=== PATIENT | male | born 1960 | race Two or more races ===

== ENCOUNTER 2016-10-21 20:50 | Emergency (ER) | payer BC ==
[2016-10-21 21:01] VITALS: BP 134/75
[2016-10-21] MEDS ORDERED: Acetaminophen/oxyCODONE 325-5 MG Tab PO ONE (21:27)
[2016-10-21] MEDS ORDERED: predniSONE 20 MG Tab PO ONE (21:27)
[2016-10-21] MEDS ORDERED: Indomethacin 25 MG Cap PO ONE (21:27)
--- NOTE | 2016-10-21 21:29 | EDM.PDOC ---
ED HPI Trauma - General Chief Complaint: Lower Extremity Injury/Pain Stated Complaint: LEFT KNEE PAIN Time Seen by Provider: 10/21/16 21:20 Source: Reports: Patient History Limitations: Reports: No limitations - History of Present Illness INITIAL COMMENTS - FREE TEXT/NARRATIVE: 56-year-old male presents the ED with acute onset of severe pain in his left knee. Patient reports that he said previous trauma to the knee and kelvin COFFEY and medial meniscal injury identified on MRI. Was offered surgery in [facility], [place] but declined at that time. Since that time he can get along pretty well. He works but he wears a brace a good portion of the time depending on what he is doing. He suffered no recent trauma or injuries. He states he was up in my [place] most of the weekend at his son's wrestling tournament standing a good portion of the time. By Friday evening on the way home when he noticed that the knee was starting to ache and hurt a bit. Yesterday the knee became more painful and swollen and hot to touch. He did try to work today but found it very difficult. He states the pain is bad enough to make him cry. Pain is localized to the knee superior to the joint space. Symptom Onset Date: 10/19/16 (late in the evening on the way home from my not.) Occurred When: other (developed about 2 days ago.) Method of Injury: other Severity: severe (no known injury) Pain/Injury Location: Reports: lower extremity, left (left knee.) Associated Symptoms: Reports: no other symptoms Allergies/ADRs: Allergies No Known Allergies Allergy (Verified 08/29/16 03:00) Home Medications: Ambulatory Orders Insulin Detemir [Levemir] 75 unit SQ DAILY 01/25/14 [Confirmed 08/29/16] Lisinopril [Zestril] 20 mg PO DAILY 01/25/14 [Confirmed 08/29/16] Simvastatin [Zocor] 40 mg PO DAILY 01/25/14 [Confirmed 08/29/16] Aspirin [Halfprin] 81 mg PO ASDIRECTED 08/17/14 [Confirmed 08/29/16] Levothyroxine [Synthroid] 25 mcg PO DAILY 11/20/14 [Confirmed 08/29/16] Furosemide [Lasix] 40 mg PO DAILY 01/11/16 [Confirmed 08/29/16] Novolog Regular Insulin. 05/21/16 oxyCODONE 10 mg PO Q6H PRN 05/21/16 [Confirmed 08/29/16] traMADol [Ultram] 50 - 100 mg PO Q6H PRN #15 tablet 08/29/16 Diclofenac Sodium [Voltaren] 50 mg PO TIDMEALS #30 tab.ec 10/21/16 Prednisone [IJD: predniSONE] 20 mg PO BID #14 tab 10/21/16 oxyCODONE HCl/Acetaminophen [Percocet 5-325 mg Tablet] 1 - 2 each PO Q4H PRN # 20 tablet 10/21/16 Past Medical History Cardiovascular History: Reports: High cholesterol, Hypertension Gastrointestinal History: Reports: GERD Other Genitourinary History: vasectomy Musculoskeletal History: Reports: Back pain, chronic, Fracture Psychiatric History: Reports: Addiction Endocrine/Metabolic History: Reports: Diabetes, type II (uses insulin for diabetic control.), Hypothyroidism - Infectious Disease History Infectious Disease History: Reports: Chicken pox - Past Surgical History GI Surgical History: Reports: Cholecystectomy Male Surgical History: Reports: Vasectomy Social & Family History - Family History Family Medical History: Noncontributory - Tobacco Use Smoking Status *Q: Current Every Day Smoker Years of Tobacco use: 1 Packs/Tins Daily: 0.2 Used Tobacco, but Quit: Yes Month Tobacco Last Used: 20 years Second Hand Smoke Exposure: No - Caffeine Use Caffeine Use: Reports: None - Alcohol Use Days Per Week of Alcohol Use: 7 Number of Drinks Per Day: 2 Total Drinks Per Week: 14 - Recreational Drug Use Recreational Drug Use: No Recreational Drug Type: Reports: Other (see below) - Living Situation & Occupation Occupation: employed Review of Systems - Review of Systems Review Of Systems: See Below Constitutional: Reports: chills. Denies: fever, weakness, other Eyes: Reports: no symptoms (perhaps had a few chills earlier today.) Ears: Reports: no symptoms Nose: Reports: no symptoms Mouth/Throat: Reports: no symptoms Respiratory: Reports: no symptoms Cardiovascular: Reports: no symptoms GI/Abdominal: Reports: No symptoms Genitourinary: Reports: other (frequency) Musculoskeletal: Reports: joint pain Skin: Reports: no symptoms (low back and left knee at times.) Neurological: Reports: no symptoms, gait disturbance Psychiatric: Denies: no symptoms (walking with a ba) Trauma Exam - Physical Exam Exam: See Below Exam Limited By: No limitations General Appearance: Reports: alert, WD/WN, mild distress (he appears to be in significant discomfort.) Extremities: Reports: other (examination was primarily confined to the left lower extremity. He has mild swelling in the soft tissues over the left knee. There is no cellulitis evident per se. There is mild tenderness on palpation of the prepatellar bursa in the infrapatellar bursa. There was no true joint space effusion or pain along the joint space. Pain is along the suprapatellar recess bursa suggesting underlying inf inflammation. He has full range of motion. I do not feel he has any evidence of a septic joint. There is no true knee effusion.) Neurologic: Reports: no motor/sensory deficits, alert, normal mood/affect, oriented x 3 Skin: Reports: Normal color, Warm/dry, Other - [place] Coma Score Best Eye Response ([place]): (4) open spontaneously Best Verbal Response ([place]): (5) oriented Best Motor Response ([place]): (6) obeys commands [place] Total: 15 Course - Vital Signs Last Recorded V/S: Last Vital Signs Temp 36.7 C 10/21/16 20:58 Pulse 86 10/21/16 20:58 Resp 16 10/21/16 20:58 BP 134/75 10/21/16 20:58 Pulse Ox 95 10/21/16 20:58 - Orders/Labs/Meds Orders: Active Orders 24 hr Category Date Time Status Knee 3V Lt [CR] Stat Exams 10/21/16 21:28 Taken Meds: Medications Discontinued Medications Generic Name Dose Route Start Last Admin Trade Name Jarrellq PRN Reason Stop Dose Admin Indomethacin 50 mg 10/21/16 21:27 10/21/16 21:45 Indocin PO 10/21/16 21:28 50 mg ONETIME ONE Administration Oxycodone/Acetaminophen 2 tab 10/21/16 21:27 10/21/16 21:44 Percocet 325-5 Mg PO 10/21/16 21:28 2 tab ONETIME ONE Administration Prednisone 30 mg 10/21/16 21:27 10/21/16 21:45 Prednisone PO 10/21/16 21:28 30 mg ONETIME ONE Administration - Radiology Interpretation Free Text/Narrative:: 56-year-old male of [place] descent presents the ED with an acutely painful left knee. No recent acute injury. Previous injury in 2013 with torn anterior cruciate ligament and medial meniscal tear which he declined surgical repair 4. Gets along well with the brace and then just work quite well. He does spend time working on his knees. Knee started hurting spontaneously when he was at a wrestling tournament this weekend standing a lot in my not. Yesterday the knee started to swell and become even more painful and increased warmth appreciated. Today the pain is bad enough that he can barely walk he states is been no to almost make him cry. Examination shows inflammation over the knee primarily the patella and suprapatellar recess lateral to the patella. There is no true knee effusion. There is no jointline tenderness. Clinically I think he' s developed pseudogout in the knee. Plan x-rays of the knee would be carried out to look for loose bodies. I will start him on prednisone 30 mg by mouth with Percocet 5 325x2 by mouth for pain relief and indomethacin 50 mg by mouth. - Re-Assessments/Exams Free Text/Narrative Re-Assessment/Exam: 10/21/16 22:25: x-rays of the left knee are completely normal. He does have a fabella. No foreign bodies were identified within the true knee joint.plan he will be treated for suspect Crystal related disorder arthritis. Suspect pseudogout. He'll use Percocet 5 325 one or 2 tablets every 4-6 hours as needed for pain relief when not working or operating a motor vehicle. He will use Voltaren 50 mg 3 times daily for the next 10 days to clear up inflammation. Prednisone 20 mg twice daily breakfast and supper for 5 for 5 days to reduce pain and inflammation in the knee. He is just expect marked improvement in the next 2-3 days. If condition worsens in that timeframe or he develops fever or chills he will return to the ED. Departure - Departure Time of Disposition: 22:20 Disposition: Home, Self-Care 01 Condition: fair Clinical Impression: Pseudogout of left knee Prescriptions: Diclofenac Sodium [Voltaren] 50 mg PO TIDMEALS #30 tab.ec Prednisone [IJD: predniSONE] 20 mg PO BID #14 tab oxyCODONE HCl/Acetaminophen [Percocet 5-325 mg Tablet] 1 - 2 each PO Q4H PRN # 20 tablet PRN Reason: pain relief. Instructions: Calcium Pyrophosphate Deposition Referrals: Rona Andrade MD [Primary Care Provider] - Forms: ED Department Discharge Additional Instructions: evaluation in the emergency him today in regards to acute onset of severe pain in the left anterior knee. This has developed acutely over the last 48 hours. No known trauma to the knee. Examination shows evidence of inflammation involving the lining of the joints above the knee.x-rays of the knee proved to be completely normal. Suspect diagnosis to be inflammation secondary to the deposition of pseudogout crystals. Treatment is to use prednisone 20 mg twice daily for the next 7 days with breakfast and supper. First dose of prednisone was given in the ED tonight. Need to use anti-inflammatory Voltaren 50 mg 3 times daily for the next 10 days to relieve pain and inflammation. Pain medication Percocet 5 325 one or 2 every 4-6 hours needed for pain relief. Expect marked improvement over the next 48-72 hours. If not markedly improved to need to return to medical care. - My Orders Last 24 Hours: My Active Orders 10/21/16 21:28 Knee 3V Lt [CR] Stat - Assessment/Plan Last 24 Hours: My Active Orders 10/21/16 21:28 Knee 3V Lt [CR] Stat
--- NOTE | 2016-10-22 07:05 | CR ---
Left knee: AP, lateral and sunrise patellar views of the left knee were obtained. Comparison: No previous knee study. Medial and lateral joint spaces are maintained in height. No joint effusion is seen. Minimal spur noted off the lateral patella. No fracture or other bony abnormality is identified. Impression: 1. Minimal spur off the lateral patella. 2. Left knee exam is otherwise unremarkable. Diagnostic code #2
== END 2016-10-21 22:45 | disposition home or self-care (01) ==
LOC: JD.ED 20:50
DX: M11.262 Other chondrocalcinosis, left knee (principal); E78.00 Pure hypercholesterolemia, unspecified; I10 Essential (primary) hypertension; K21.9 Gastro-esophageal reflux disease without esophagitis; E11.9 Type 2 diabetes mellitus without complications; F17.210 Nicotine dependence, cigarettes, uncomplicated; Z79.82 Long term (current) use of aspirin; Z79.899 Other long term (current) drug therapy; Z79.4 Long term (current) use of insulin; Z90.49 Acquired absence of other specified parts of digestive tract
CPT/HCPCS: 73562; 99284; A9270; 99283

== ENCOUNTER 2016-12-04 20:18 | Emergency (ER) | payer BC ==
[2016-12-04] MEDS ORDERED: Sodium Chloride 0.9% 10 ML Syringe FLUSH PRN (20:46)
[2016-12-04] MEDS ORDERED: Ondansetron 4 MG/2 ML SDV IVPUSH ONE (20:46)
[2016-12-04] MEDS ORDERED: Sodium Chloride 0.9% 1,000 ML IV STA (20:46)
[2016-12-04] MEDS ORDERED: Alum Hydrox/Mag Hydrox/Simeth 30 ML, Lidocaine 2% 15 ML PO ONE ×2 (20:48)
[2016-12-04] MEDS ORDERED: Pantoprazole 40 MG Vial IVPUSH ONE (20:48)
--- NOTE | 2016-12-04 20:58 | EDM.PDOC ---
ED HPI GI/ABDOMINAL - General Chief Complaint: Abdominal Pain Stated Complaint: ABDOMAINAL PAIN Time Seen by Provider: 12/04/16 20:35 Source of Information: Reports: Patient History Limitations: Reports: No limitations - History of Present Illness INITIAL COMMENTS - FREE TEXT/NARRATIVE: The patient presents with right upper abdominal pain that started about 1 week ago. It is a burning pain and it radiates to his back at times. He has been traveling for over a week to [place] and [place] and then back. He has no dysuria or diarrhea. He still can eat and that does not affect it much. He has no gallbladder. He tried pepto bismal, maalox, and milk of magnesia but nothing is helping. He has some nausea tonight but no vomiting. Timing/Duration: Reports: Week(s): (1) Location: [facility] Quality: Reports: burning Severity: moderate Context: Reports: activity/exercise. Denies: sick contact, bad/questionable food, out of country travel, recent surgery, recent trauma, lifting Associated Symptoms: Reports: nausea/vomiting. Denies: chest pain, constipation , diarrhea, fever/chills, loss of appetite - Related Data Allergies/ADRs: Allergies Allergy/AdvReac Type Severity Reaction Status Date / Time No Known Allergies Allergy Verified 08/29/16 03:00 Home Meds: Home Meds Insulin Detemir [Levemir] 75 unit SQ DAILY 01/25/14 [History] Lisinopril [Zestril] 20 mg PO DAILY 01/25/14 [History] Simvastatin [Zocor] 40 mg PO DAILY 01/25/14 [History] Aspirin [Halfprin] 81 mg PO ASDIRECTED 08/17/14 [History] Levothyroxine [Synthroid] 25 mcg PO DAILY 11/20/14 [History] Furosemide [Lasix] 40 mg PO DAILY 01/11/16 [History] Novolog Regular Insulin. 0 unit INJECT ASDIRECTED 05/21/16 [History] Omeprazole Magnesium [Prilosec Otc] 20 mg PO DAILY #14 tablet. 12/04/16 [Rx] Past Medical History Cardiovascular History: Reports: High cholesterol, Hypertension Gastrointestinal History: Reports: GERD Other Genitourinary History: vasectomy Musculoskeletal History: Reports: Back pain, chronic, Fracture Psychiatric History: Reports: Addiction Endocrine/Metabolic History: Reports: Diabetes, type II, Hypothyroidism - Infectious Disease History Infectious Disease History: Reports: Chicken pox - Past Surgical History GI Surgical History: Reports: Cholecystectomy Male Surgical History: Reports: Vasectomy Social & Family History - Family History Family Medical History: Noncontributory - Tobacco Use Smoking Status *Q: Former Smoker Years of Tobacco use: 1 Packs/Tins Daily: 0.2 Used Tobacco, but Quit: Yes Month Tobacco Last Used: 30 Second Hand Smoke Exposure: No - Caffeine Use Caffeine Use: Reports: Coffee, Energy drinks, Soda - Alcohol Use Days Per Week of Alcohol Use: 7 Number of Drinks Per Day: 2 Total Drinks Per Week: 14 - Recreational Drug Use Recreational Drug Use: No Recreational Drug Type: Reports: Other (see below) - Living Situation & Occupation Occupation: employed ED ROS GENERAL - Review of Systems Review Of Systems: See Below Constitutional: Reports: no symptoms HEENT: Reports: No symptoms Respiratory: Reports: No Symptoms Cardiovascular: Reports: No symptoms Endocrine: Reports: no symptoms GI/Abdominal: Reports: Abdominal pain, Nausea. Denies: Diarrhea, Vomiting : Reports: no symptoms Musculoskeletal: Reports: no symptoms Skin: Reports: no symptoms ED EXAM, GI/ABD - Physical Exam Exam: See Below Exam Limited By: No limitations General Appearance: alert, no apparent distress Ears: normal external exam Nose: normal inspection Throat/Mouth: Normal inspection Head: atraumatic, normocephalic Neck: normal inspection Respiratory/Chest: no respiratory distress, lungs clear, normal breath sounds Cardiovascular: regular rate, rhythm, no edema, no murmur GI/Abdominal: soft, no organomegaly, no mass, tenderness (Mild to moderate pain to the RUQ) Back Exam: normal inspection Course - Vital Signs Last Recorded V/S: Last Vital Signs Temp 98.0 F 12/04/16 20:31 Pulse 79 12/04/16 20:31 Resp 20 12/04/16 20:31 BP 155/85 H 12/04/16 20:31 Pulse Ox 97 12/04/16 20:31 - Orders/Labs/Meds Orders: Active Orders 24 hr Category Date Time Status Peripheral IV Care [RC] . DIRECTED Care 12/04/16 20:47 Active Sodium Chloride 0.9% [Saline Flush] Med 12/04/16 20:46 Active 10 ml FLUSH ASDIRECTED PRN ED Antiemetic Medication Reflex [OM.PC] Stat Oth 12/04/16 20:47 Ordered Peripheral IV Insertion Adult [OM.PC] Stat Oth 12/04/16 20:46 Ordered Medication Orders Sodium Chloride (Saline Flush) 10 ml FLUSH ASDIRECTED PRN PRN Reason: Keep Vein Open Last Admin: 12/04/16 21:00 Dose: 10 ml Labs: Laboratory Tests 12/04/16 12/04/16 12/04/16 Range/Units 20:40 20:40 20:40 WBC 7.54 (4.23-9.07) K/mm3 RBC 4.55 L (4.63-6.08) M/mm3 Hgb 12.9 L (13.7-17.5) gm/L Hct 36.9 L (40.1-51.0) % MCV 81.1 (79.0-92.2) fl MCH 28.4 (25.7-32.2) pg MCHC 35.0 (32.2-35.5) g/dl RDW Std Deviation 42.8 (35.1-43.9) fL Plt Count 227 (163-337) K/mm3 MPV 9.7 (9.4-12.3) fl Neut % (Auto) 58.6 (34.0-67.9) % Lymph % (Auto) 30.2 (21.8-53.1) % [place] % (Auto) 9.3 (5.3-12.2) % Eos % (Auto) 1.5 (0.8-7.0) Baso % (Auto) 0.1 (0.1-1.2) % Neut # (Auto) 4.42 (1.78-5.38) K/mm3 Lymph # (Auto) 2.28 (1.32-3.57) K/mm3 [place] # (Auto) 0.70 (0.30-0.82) K/mm3 Eos # (Auto) 0.11 (0.04-0.54) K/mm3 Baso # (Auto) 0.01 (0.01-0.08) K/mm3 Sodium 136 (136-145) mEq/L Potassium 4.4 (3.5-5.1) mEq/L Chloride 101 (98-107) mEq/L Carbon Dioxide 26 (21-32) mEq/L Anion Gap 13.4 (5-15) BUN 21 H (7-18) mg/dL Creatinine 1.2 (0.7-1.3) mg/dL Est Cr Clr Drug Dosing 62.77 mL/min Estimated GFR (MDRD) > 60 (>60) mL/min BUN/Creatinine Ratio 17.5 (14-18) Glucose 359 H (74-106) mg/dL Calcium 9.0 (8.5-10.1) mg/dL Total Bilirubin 0.3 (0.2-1.0) mg/dL AST 19 (15-37) U/L ALT 31 (16-63) U/L Alkaline Phosphatase 122 H (46-116) U/L Total Protein 6.8 (6.4-8.2) g/dl Albumin 3.4 (3.4-5.0) g/dl Globulin 3.4 gm/dL Albumin/Globulin Ratio 1.0 (1-2) Lipase 353 (73-393) U/L Urine Color (Yellow) Urine Appearance (Clear) Urine pH (5.0-8.0) Ur Specific [place] (1.005-1.030) Urine Protein (Negative) Urine Glucose (UA) (Negative) Urine Ketones (Negative) Urine Occult Blood (Negative) Urine Nitrite (Negative) Urine Bilirubin (Negative) Urine Urobilinogen (0.2-1.0) Ur Leukocyte Esterase (Negative) Urine RBC (0-5) /hpf Urine WBC (0-5) /hpf Ur Epithelial Cells (0-5) /hpf Urine Bacteria (FEW) /hpf Urine Mucus (FEW) /hpf H. pylori IgG Antibody Negative (NEGATIVE) 12/04/16 Range/Units 21:05 WBC (4.23-9.07) K/mm3 RBC (4.63-6.08) M/mm3 Hgb (13.7-17.5) gm/L Hct (40.1-51.0) % MCV (79.0-92.2) fl MCH (25.7-32.2) pg MCHC (32.2-35.5) g/dl RDW Std Deviation (35.1-43.9) fL Plt Count (163-337) K/mm3 MPV (9.4-12.3) fl Neut % (Auto) (34.0-67.9) % Lymph % (Auto) (21.8-53.1) % [place] % (Auto) (5.3-12.2) % Eos % (Auto) (0.8-7.0) Baso % (Auto) (0.1-1.2) % Neut # (Auto) (1.78-5.38) K/mm3 Lymph # (Auto) (1.32-3.57) K/mm3 [place] # (Auto) (0.30-0.82) K/mm3 Eos # (Auto) (0.04-0.54) K/mm3 Baso # (Auto) (0.01-0.08) K/mm3 Sodium (136-145) mEq/L Potassium (3.5-5.1) mEq/L Chloride (98-107) mEq/L Carbon Dioxide (21-32) mEq/L Anion Gap (5-15) BUN (7-18) mg/dL Creatinine (0.7-1.3) mg/dL Est Cr Clr Drug Dosing mL/min Estimated GFR (MDRD) (>60) mL/min BUN/Creatinine Ratio (14-18) Glucose (74-106) mg/dL Calcium (8.5-10.1) mg/dL Total Bilirubin (0.2-1.0) mg/dL AST (15-37) U/L ALT (16-63) U/L Alkaline Phosphatase (46-116) U/L Total Protein (6.4-8.2) g/dl Albumin (3.4-5.0) g/dl Globulin gm/dL Albumin/Globulin Ratio (1-2) Lipase (73-393) U/L Urine Color Yellow (Yellow) Urine Appearance Clear (Clear) Urine pH 7.0 (5.0-8.0) Ur Specific [place] 1.015 (1.005-1.030) Urine Protein 2+ H (Negative) Urine Glucose (UA) 2+ H (Negative) Urine Ketones Negative (Negative) Urine Occult Blood Trace-lysed H (Negative) Urine Nitrite Negative (Negative) Urine Bilirubin Negative (Negative) Urine Urobilinogen 0.2 (0.2-1.0) Ur Leukocyte Esterase Negative (Negative) Urine RBC 0-5 (0-5) /hpf Urine WBC 0-5 (0-5) /hpf Ur Epithelial Cells 0-5 (0-5) /hpf Urine Bacteria Not seen (FEW) /hpf Urine Mucus Not seen (FEW) /hpf H. pylori IgG Antibody (NEGATIVE) Meds: Medications Generic Name Dose Route Start Last Admin Trade Name Baylee PRN Reason Stop Dose Admin Sodium Chloride 10 ml 12/04/16 20:46 12/04/16 21:00 Saline Flush FLUSH 10 ml ASDIRECTED PRN Administration Keep Vein Open Discontinued Medications Generic Name Dose Route Start Last Admin Trade Name Baylee PRN Reason Stop Dose Admin Al Hydroxide/Mg Hydroxide 30 0 ml 12/04/16 20:48 12/04/16 20:59 ml/ Lidocaine HCl 15 ml PO 12/04/16 20:49 45 ml ONETIME ONE Administration Sodium Chloride 1,000 mls @ 1,000 mls/hr 12/04/16 20:46 12/04/16 20:56 Normal Saline IV 12/04/16 21:45 1,000 mls/hr .BOLUS STA Administration Ondansetron HCl 4 mg 12/04/16 20:46 12/04/16 20:56 Zofran IVPUSH 12/04/16 20:47 4 mg ONETIME ONE Administration Pantoprazole Sodium 40 mg 12/04/16 20:48 12/04/16 20:59 Protonix Iv IVPUSH 12/04/16 20:49 40 mg ONETIME ONE Administration - Re-Assessments/Exams Free Text/Narrative Re-Assessment/Exam: 12/04/16 21:01 I ordered an IV NS 1L bolus, zofran 4mg IV, protonix 40mg IV, GI cocktail, labs and UA. 12/04/16 21:57 His CBC and CMP look good except his blood sugar is high at 359. His UA shows no UTI. His H-pylori is negative. I feel this is gastritis from traveling and not eating very good. I will give him a shot of dilaudid and give him a prescription for some prilosec for 2 weeks. Departure - Departure Time of Disposition: 22:00 Disposition: Home, Self-Care 01 Condition: good Clinical Impression: Hyperglycemia Gastritis Qualifiers: Gastritis type: unspecified gastritis Chronicity: acute Gastritis bleeding: without bleeding Qualified Code(s): K29.00 - Acute gastritis without bleeding Prescriptions: Omeprazole Magnesium [Prilosec Otc] 20 mg PO DAILY #14 tablet.dr Referrals: Rona Andrade MD [Primary Care Provider] - 1 Week Forms: ED Department Discharge Additional Instructions: Take prilosec daily for 2 weeks. Take your medications as prescribed. Please return if you are worse. - My Orders Last 24 Hours: My Active Orders 12/04/16 20:46 Sodium Chloride 0.9% [Saline Flush] 10 ml FLUSH ASDIRECTED PRN Peripheral IV Insertion Adult [OM.PC] Stat 12/04/16 20:47 Peripheral IV Care [RC] . DIRECTED ED Antiemetic Medication Reflex [OM.PC] Stat - Assessment/Plan Last 24 Hours: My Active Orders 12/04/16 20:46 Sodium Chloride 0.9% [Saline Flush] 10 ml FLUSH ASDIRECTED PRN Peripheral IV Insertion Adult [OM.PC] Stat 12/04/16 20:47 Peripheral IV Care [RC] . DIRECTED ED Antiemetic Medication Reflex [OM.PC] Stat
[2016-12-04] MEDS ORDERED: HYDROmorphone 1 MG/ML Syringe IVPUSH ONE (22:01)
[2016-12-04 22:33] VITALS: BP 137/86
== END 2016-12-04 22:33 | disposition home or self-care (01) ==
LOC: JD.ED 20:18
DX: K29.00 Acute gastritis without bleeding (principal); E11.65 Type 2 diabetes mellitus with hyperglycemia; E78.00 Pure hypercholesterolemia, unspecified; I10 Essential (primary) hypertension; K21.9 Gastro-esophageal reflux disease without esophagitis; E03.9 Hypothyroidism, unspecified; Z79.4 Long term (current) use of insulin; Z79.82 Long term (current) use of aspirin; Z79.899 Other long term (current) drug therapy; Z90.49 Acquired absence of other specified parts of digestive tract; Z87.891 Personal history of nicotine dependence
CPT/HCPCS: 36415; 80053; 81001; 83690; 85025; 86677; 96361; 96374; 96375; 99284; A9270; C9113; J1170; J2405; J7040; J7050

== ENCOUNTER 2017-02-12 16:20 | Emergency (ER) | payer BC ==
[2017-02-12 16:45] VITALS: BP 151/106
[2017-02-12] MEDS ORDERED: Sodium Chloride 0.9% 1,000 ML IV ONE (18:04)
[2017-02-12] MEDS ORDERED: Sodium Chloride 0.9% 10 ML Syringe FLUSH PRN (18:04)
--- NOTE | 2017-02-12 20:22 | EDM.PDOC ---
ED HPI GENERAL MEDICAL PROBLEM - General Chief Complaint: Diabetic Complaint Stated Complaint: PAIN IN EAR, VERY TIRED, DIABETIC Time Seen by Provider: 02/12/17 18:16 Source of Information: Reports: Patient, Family (son) History Limitations: Reports: No Limitations - History of Present Illness INITIAL COMMENTS - FREE TEXT/NARRATIVE: 56 year old male presents for evaluation and treatment of right ear pain. Patient reports right ear pain for the last 5 days. reports associated symptoms of a slight productive cough and a sore throat from coughing. Denies any fevers , chills, sinus problems, headaches, bodyaches, chest pain or shortness of breath. Patient is a diabetic and reports his sugars have been well controlled, normally around 120s. Reports he did have a high yesterday in the 250s which he took insulin for. The patient's son is present. He is very concerned as he feels the patient has been more lethargic than normal. Reports he goes to work comes home an sleeps all day. This is unusual for him. 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 He has been tested for sleep apnea in the past. Patient is an alcohoilc. He has been sober for several months but over the last few weeks he began drinking alcohol again. Reports he has 1 or 2 shooters at night and in the morning. Right Ear Pain Score (Numeric/FACES): 5 - Related Data Allergies Allergy/AdvReac Type Severity Reaction Status Date / Time No Known Allergies Allergy Verified 02/12/17 16:47 Home Meds: Home Meds Lisinopril [Zestril] 20 mg PO DAILY 01/25/14 [History] Simvastatin [Zocor] 40 mg PO DAILY 01/25/14 [History] Aspirin [Halfprin] 81 mg PO ASDIRECTED 08/17/14 [History] Levothyroxine [Synthroid] 75 mcg PO DAILY 11/20/14 [History] Novolog Regular Insulin. 0 unit INJECT ASDIRECTED 05/21/16 [History] Amoxicillin 875 mg PO TID #30 tab 02/12/17 [Rx] Tresiba Insulin 68 units SQ DAILY 02/12/17 [History] Past Medical History Cardiovascular History: Reports: High Cholesterol, Hypertension Gastrointestinal History: Reports: GERD Other Genitourinary History: vasectomy Musculoskeletal History: Reports: Back Pain, Chronic, Fracture Psychiatric History: Reports: Addiction Endocrine/Metabolic History: Reports: Diabetes, Type II, Hypothyroidism - Infectious Disease History Infectious Disease History: Reports: Chicken Pox - Past Surgical History GI Surgical History: Reports: Cholecystectomy Male Surgical History: Reports: Vasectomy Social & Family History - Family History Family Medical History: Noncontributory - Tobacco Use Smoking Status *Q: Current Every Day Smoker Years of Tobacco use: 0 Packs/Tins Daily: 1 Used Tobacco, but Quit: Yes Month Tobacco Last Used: 30 Second Hand Smoke Exposure: No - Caffeine Use Caffeine Use: Reports: None - Alcohol Use Days Per Week of Alcohol Use: 7 Number of Drinks Per Day: 6 Total Drinks Per Week: 42 - Recreational Drug Use Recreational Drug Use: No Recreational Drug Type: Reports: Other (see below) - Living Situation & Occupation Occupation: Employed ED ROS GENERAL - Review of Systems Review Of Systems: See Below Constitutional: Reports: Fatigue. Denies: Fever HEENT: Reports: Ear Pain (right), Throat Pain. Denies: Sinus Problem Respiratory: Reports: Cough, Sputum. Denies: Shortness of Breath Cardiovascular: Denies: Chest Pain Endocrine: Reports: High Glucose (high of 245 yesterday). Denies: Low Glucose GI/Abdominal: Denies: Abdominal Pain, Nausea, Vomiting : Reports: No Symptoms Neurological: Denies: Headache ED EXAM GENERAL NO PERIP PULSE - Physical Exam Exam: See Below Exam Limited By: Intoxication (smells of alcohol) General Appearance: Alert, WD/WN, No Apparent Distress, Obese, Other (sleeping but easily arousable) Eye Exam: Bilateral Eye: Conjunctival Injection Ears: Normal External Exam, Normal Canal, Other (right TM is erythematous ans bulding; left ) Nose: Normal Inspection Throat/Mouth: Normal Inspection, Normal Lips, Normal Gums, Normal Oropharynx, Normal Voice, No Airway Compromise Neck: Normal Inspection, Supple, Non-Tender Respiratory/Chest: No Respiratory Distress, Lungs Clear, Normal Breath Sounds Cardiovascular: Normal Peripheral Pulses, Regular Rate, Rhythm, No Murmur GI/Abdominal: Normal Bowel Sounds, Soft, Non-Tender Neurological: Alert, Oriented, Normal Cognition Psychiatric: Normal Affect, Normal Mood Skin Exam: Warm, Dry, Normal Color Course - Vital Signs Last Recorded V/S: Last Vital Signs Temp 36.3 C 02/12/17 16:36 Pulse 81 02/12/17 16:36 Resp 18 02/12/17 16:36 BP 151/106 H 02/12/17 16:36 Pulse Ox 95 02/12/17 16:36 - Orders/Labs/Meds Labs: Laboratory Tests 02/12/17 02/12/17 02/12/17 Range/Units 18:20 18:20 18:20 WBC 5.98 (4.23-9.07) K/mm3 RBC 4.99 (4.63-6.08) M/mm3 Hgb 14.1 (13.7-17.5) gm/L Hct 41.5 (40.1-51.0) % MCV 83.2 (79.0-92.2) fl MCH 28.3 (25.7-32.2) pg MCHC 34.0 (32.2-35.5) g/dl RDW Std Deviation 44.8 H (35.1-43.9) fL Plt Count 241 (163-337) K/mm3 MPV 9.0 L (9.4-12.3) fl Neut % (Auto) 62.4 (34.0-67.9) % Lymph % (Auto) 26.9 (21.8-53.1) % Imperial % (Auto) 9.2 (5.3-12.2) % Eos % (Auto) 1.0 (0.8-7.0) Baso % (Auto) 0.2 (0.1-1.2) % Neut # (Auto) 3.73 (1.78-5.38) K/mm3 Lymph # (Auto) 1.61 (1.32-3.57) K/mm3 [place] # (Auto) 0.55 (0.30-0.82) K/mm3 Eos # (Auto) 0.06 (0.04-0.54) K/mm3 Baso # (Auto) 0.01 (0.01-0.08) K/mm3 Sodium 141 (136-145) mEq/L Potassium 3.7 (3.5-5.1) mEq/L Chloride 106 (98-107) mEq/L Carbon Dioxide 27 (21-32) mEq/L Anion Gap 11.7 (5-15) BUN 14 (7-18) mg/dL Creatinine 1.0 (0.7-1.3) mg/dL Est Cr Clr Drug Dosing 69.89 mL/min Estimated GFR (MDRD) > 60 (>60) mL/min BUN/Creatinine Ratio 14.0 (14-18) Glucose 121 H (74-106) mg/dL Calcium 8.6 (8.5-10.1) mg/dL Total Bilirubin 0.3 (0.2-1.0) mg/dL AST 67 H (15-37) U/L ALT 61 (16-63) U/L Alkaline Phosphatase 84 (46-116) U/L Total Protein 7.6 (6.4-8.2) g/dl Albumin 3.5 (3.4-5.0) g/dl Globulin 4.1 gm/dL Albumin/Globulin Ratio 0.9 L (1-2) TSH 3rd Generation 0.927 (0.358-3.74) uIU/mL Urine Color (Yellow) Urine Appearance (Clear) Urine pH (5.0-8.0) Ur Specific [place] (1.005-1.030) Urine Protein (Negative) Urine Glucose (UA) (Negative) Urine Ketones (Negative) Urine Occult Blood (Negative) Urine Nitrite (Negative) Urine Bilirubin (Negative) Urine Urobilinogen (0.2-1.0) Ur Leukocyte Esterase (Negative) Urine RBC (0-5) /hpf Urine WBC (0-5) /hpf Urine WBC Clumps (NOT SEEN) /hpf Ur Epithelial Cells (0-5) /hpf Urine Bacteria (FEW) /hpf Urine Mucus (FEW) /hpf Urine Yeast (NOT SEEN) Ethyl Alcohol 0.24 (0.00) gm% Monoscreen Negative (NEGATIVE) 02/12/17 Range/Units 18:40 WBC (4.23-9.07) K/mm3 RBC (4.63-6.08) M/mm3 Hgb (13.7-17.5) gm/L Hct (40.1-51.0) % MCV (79.0-92.2) fl MCH (25.7-32.2) pg MCHC (32.2-35.5) g/dl RDW Std Deviation (35.1-43.9) fL Plt Count (163-337) K/mm3 MPV (9.4-12.3) fl Neut % (Auto) (34.0-67.9) % Lymph % (Auto) (21.8-53.1) % [place] % (Auto) (5.3-12.2) % Eos % (Auto) (0.8-7.0) Baso % (Auto) (0.1-1.2) % Neut # (Auto) (1.78-5.38) K/mm3 Lymph # (Auto) (1.32-3.57) K/mm3 [place] # (Auto) (0.30-0.82) K/mm3 Eos # (Auto) (0.04-0.54) K/mm3 Baso # (Auto) (0.01-0.08) K/mm3 Sodium (136-145) mEq/L Potassium (3.5-5.1) mEq/L Chloride (98-107) mEq/L Carbon Dioxide (21-32) mEq/L Anion Gap (5-15) BUN (7-18) mg/dL Creatinine (0.7-1.3) mg/dL Est Cr Clr Drug Dosing mL/min Estimated GFR (MDRD) (>60) mL/min BUN/Creatinine Ratio (14-18) Glucose (74-106) mg/dL Calcium (8.5-10.1) mg/dL Total Bilirubin (0.2-1.0) mg/dL AST (15-37) U/L ALT (16-63) U/L Alkaline Phosphatase (46-116) U/L Total Protein (6.4-8.2) g/dl Albumin (3.4-5.0) g/dl Globulin gm/dL Albumin/Globulin Ratio (1-2) TSH 3rd Generation (0.358-3.74) uIU/mL Urine Color Yellow (Yellow) Urine Appearance Clear (Clear) Urine pH 7.0 (5.0-8.0) Ur Specific [place] 1.020 (1.005-1.030) Urine Protein 3+ H (Negative) Urine Glucose (UA) Negative (Negative) Urine Ketones Negative (Negative) Urine Occult Blood 1+ H (Negative) Urine Nitrite Negative (Negative) Urine Bilirubin Negative (Negative) Urine Urobilinogen 0.2 (0.2-1.0) Ur Leukocyte Esterase Negative (Negative) Urine RBC 0-5 (0-5) /hpf Urine WBC Not seen (0-5) /hpf Urine WBC Clumps Not seen (NOT SEEN) /hpf Ur Epithelial Cells 0-5 (0-5) /hpf Urine Bacteria Rare (FEW) /hpf Urine Mucus Not seen (FEW) /hpf Urine Yeast Not seen (NOT SEEN) Ethyl Alcohol (0.00) gm% Monoscreen (NEGATIVE) Meds: Medications Discontinued Medications Generic Name Dose Route Start Last Admin Trade Name Freq PRN Reason Stop Dose Admin Sodium Chloride 1,000 mls @ 999 mls/hr 02/12/17 18:04 02/12/17 18:21 Normal Saline IV 02/12/17 19:04 999 mls/hr ONETIME ONE Administration Sodium Chloride 10 ml 02/12/17 18:04 02/12/17 18:19 Saline Flush FLUSH 10 ml ASDIRECTED PRN Administration Keep Vein Open - Re-Assessments/Exams Free Text/Narrative Re-Assessment/Exam: 02/12/17 18:31 Plan will be to obtain labs and give IV fluids. I suspect the patient;s lethargy is from the right ear infection and drinking alcohol again. 02/12/17 20:17 Labs returned. wbc is 5.98, hgb is 14.1 and plts are 241 mono is negative rapi strep is negative sodium is 141, potassium is 3.7 and chloride is 106. anion gap is 11.7. glucose is 121 tsh is 0.927 ua has 3+ protein, 1+ blood and negative for nitrites and leuks etoh is 0.24 i reviewed the labs and chest xray results with the patient. will treat for an ear infection. Likely he is not being honest about his current etoh consumption. [facility] had good success with treatment there. i encouraged him to follow up with them again. Discharge instructions as documented. Departure - Departure Time of Disposition: 20:22 Disposition: Home, Self-Care 01 Condition: Fair Clinical Impression: Alcohol intoxication, Alcohol abuse Otitis media Qualifiers: Otitis media type: suppurative Chronicity: acute Laterality: right Recurrence: not specified as recurrent Spontaneous tympanic membrane rupture: without spontaneous rupture Qualified Code(s): H66.001 - Acute suppurative otitis media without spontaneous rupture of ear drum, right ear - Discharge Information Prescriptions: Amoxicillin 875 mg PO TID #30 tab Instructions: Otitis Media, Adult, [id number], Alcohol Intoxication, Easy-to- Read Referrals: Rona Andrade MD [Primary Care Provider] - Forms: ED Department Discharge Additional Instructions: Take the amoxicillin as prescribed. Take 1 tab PO tid x 10 days. This is an antibiotic. Take with with food. I recommend you stop drinking alcohol. This will lead to a happy, healthier life if you stop drinking. Follow-up with [facility] and let them know you are struggling. Follow-up with PCP as needed. Please return to the ER should your symptoms change or worsen.
--- NOTE | 2017-02-13 08:08 | CR ---
Chest: Two views of the chest were obtained. Comparison: Previous chest x-ray of 08/29/16. Chest CT of 01/11/16 is also available. Heart size is slightly enlarged from prior exam. Upper mediastinum is within normal limits. Nodule is identified overlying the right lobe of the liver which is felt compatible with a granuloma which is seen within the right lung base on chest CT. Lungs otherwise are clear. Degenerative spurring is noted within the spine. Impression: 1. Heart size is slightly more prominent currently than seen on prior exam. 2. Other incidental findings. Nothing acute is appreciated. Diagnostic code #2
== END 2017-02-12 20:40 | disposition home or self-care (01) ==
LOC: JD.ED 16:20
DX: H66.001 Acute suppurative otitis media without spontaneous rupture of ear drum, right ear (principal); F10.129 Alcohol abuse with intoxication, unspecified; I10 Essential (primary) hypertension; E78.00 Pure hypercholesterolemia, unspecified; K21.9 Gastro-esophageal reflux disease without esophagitis; E11.9 Type 2 diabetes mellitus without complications; E03.9 Hypothyroidism, unspecified; F17.210 Nicotine dependence, cigarettes, uncomplicated; Z90.49 Acquired absence of other specified parts of digestive tract; Z79.899 Other long term (current) drug therapy; Y90.1 Blood alcohol level of 20-39 mg/100 ml
CPT/HCPCS: 36415; 71020; 80053; 81001; 84443; 85025; 86308; 87081; 87430; 96360; 96361; 99284; G0480; J7040; J7050; 99283

== ENCOUNTER 2017-05-11 03:06 | Emergency (ER) | payer BC ==
[2017-05-11 03:19] VITALS: BP 168/92
[2017-05-11] MEDS ORDERED: HYDROmorphone 1 MG/ML Syringe IVPUSH ONE (03:50)
[2017-05-11] MEDS ORDERED: Alum Hydrox/Mag Hydrox/Simeth 30 ML, Lidocaine 2% 15 ML PO ONE ×2 (03:50)
[2017-05-11] MEDS ORDERED: Ondansetron 4 MG/2 ML SDV IVPUSH ONE (03:50)
[2017-05-11] MEDS ORDERED: Sodium Chloride 0.9% 1,000 ML IV SCH (04:00)
--- NOTE | 2017-05-11 04:05 | EDM.PDOC ---
ED HPI GENERAL MEDICAL PROBLEM - General Chief Complaint: Chest Pain Stated Complaint: BELLY PAIN/SHORTNESS OF BREATH Time Seen by Provider: 05/11/17 03:26 Source of Information: Reports: Patient History Limitations: Reports: No Limitations - History of Present Illness INITIAL COMMENTS - FREE TEXT/NARRATIVE: His is a 56-year-old male. He had onset of sternal chest pain that started last night with some difficulty in breathing. It seemed to actually get better but then worse and so he comes to the ER. He tried his daughter's inhaler but it didn't seem to help his breathing. He describes the pain as being upper abdomen and up into the center of his chest to his neck. He has a history of gastritis and a history of reflux but he says this seemed to be worse. Along with this pain that he was having he had nausea and vomiting tingling in his arms but nothing into his jaws. He has no history of cardiac disease. When he arrived to the ER he was still having some mild symptoms but much of it had resolved and he was feeling better and breathing better. His initial EKG showed a sinus rhythm and there was no acute ST or T-wave changes noted time. Mid-Sternal Chest Pain Score (Numeric/FACES): 8 - Related Data Allergies Allergy/AdvReac Type Severity Reaction Status Date / Time No Known Allergies Allergy Verified 05/11/17 03:19 Home Meds: Home Meds Lisinopril [Zestril] 20 mg PO DAILY 01/25/14 [History] Simvastatin [Zocor] 40 mg PO DAILY 01/25/14 [History] Aspirin [Halfprin] 81 mg PO ASDIRECTED 08/17/14 [History] Levothyroxine [Synthroid] 75 mcg PO DAILY 11/20/14 [History] Novolog Regular Insulin. 0 unit INJECT ASDIRECTED 05/21/16 [History] Tresiba Insulin 68 units SQ DAILY 02/12/17 [History] Esomeprazole Magnesium [Nexium] 40 mg PO QAM #30 capsule. 05/11/17 [Rx] oxyCODONE HCl [Oxycontin] 15 mg PO BID 05/11/17 [History] oxyCODONE [oxyCODONE 20 MG/ML Soln] 10 mg PO TID 05/11/17 [History] Past Medical History Cardiovascular History: Reports: High Cholesterol, Hypertension Gastrointestinal History: Reports: GERD Other Genitourinary History: vasectomy Musculoskeletal History: Reports: Back Pain, Chronic, Fracture Psychiatric History: Reports: Addiction Endocrine/Metabolic History: Reports: Diabetes, Type II, Hypothyroidism - Infectious Disease History Infectious Disease History: Reports: Chicken Pox - Past Surgical History GI Surgical History: Reports: Cholecystectomy Male Surgical History: Reports: Vasectomy Social & Family History - Family History Family Medical History: Noncontributory - Tobacco Use Smoking Status *Q: Unknown Ever Smoked Years of Tobacco use: 0 Packs/Tins Daily: 1 Used Tobacco, but Quit: Yes Month Tobacco Last Used: 30 Second Hand Smoke Exposure: No - Caffeine Use Caffeine Use: Reports: None - Alcohol Use Days Per Week of Alcohol Use: 7 Number of Drinks Per Day: 6 Total Drinks Per Week: 42 - Recreational Drug Use Recreational Drug Use: No Recreational Drug Type: Reports: Other (see below) - Living Situation & Occupation Occupation: Employed ED ROS GENERAL - Review of Systems Review Of Systems: See Below Constitutional: Denies: Fever, Chills HEENT: Reports: No Symptoms Respiratory: Reports: Shortness of Breath. Denies: Cough Cardiovascular: Reports: Chest Pain Endocrine: Reports: No Symptoms GI/Abdominal: Reports: Abdominal Pain, Nausea, Vomiting. Denies: Diarrhea : Reports: No Symptoms Musculoskeletal: Reports: No Symptoms Skin: Reports: No Symptoms Neurological: Reports: No Symptoms Psychiatric: Reports: No Symptoms Hematologic/Lymphatic: Reports: No Symptoms ED EXAM, GENERAL - Physical Exam Exam: See Below Exam Limited By: No Limitations General Appearance: Alert, WD/WN, No Apparent Distress Eye Exam: Bilateral Eye: Normal Inspection Ears: Normal External Exam Nose: Normal Inspection Throat/Mouth: Normal Inspection, Normal Lips, Normal Oropharynx, Normal Voice, No Airway Compromise Head: Normocephalic Neck: Supple Respiratory/Chest: No Respiratory Distress, Lungs Clear, Normal Breath Sounds Cardiovascular: Regular Rate, Rhythm, No Murmur GI/Abdominal: Soft, Other (Mild upper abdomen soreness especially epigastric area but there is no masses no rebound, patient does not have a gallbladder) Back Exam: Full Range of Motion Extremities: Normal Inspection, Normal Range of Motion Neurological: Alert, Oriented Psychiatric: Normal Affect, Normal Mood Skin Exam: Warm, Dry EKG INTERPRETATION EKG Date: 05/11/17 Time: 03:32 Rhythm: NSR EKG Interpretation Comments: There is a normal sinus rhythm with no acute ST or T wave changes there is no ischemic changes noted. Course - Vital Signs Last Recorded V/S: Last Vital Signs Temp 96.6 F 05/11/17 03:15 Pulse 66 05/11/17 03:15 Resp 16 05/11/17 03:15 BP 168/92 H 05/11/17 03:15 Pulse Ox 98 05/11/17 03:15 - Orders/Labs/Meds Orders: Active Orders 24 hr Category Date Time Status Sodium Chloride 0.9% [Normal Saline] 1,000 ml Med 05/11/17 04:00 Active IV ASDIRECTED Medication Orders Sodium Chloride (Normal Saline) 1,000 mls @ 1,000 mls/hr IV ASDIRECTED CHECO Last Admin: 05/11/17 04:02 Dose: 1,000 mls/hr Labs: Laboratory Tests 05/11/17 05/11/17 Range/Units 03:30 03:30 WBC 5.86 (4.23-9.07) K/mm3 RBC 4.31 L (4.63-6.08) M/mm3 Hgb 12.4 L (13.7-17.5) gm/L Hct 36.6 L (40.1-51.0) % MCV 84.9 (79.0-92.2) fl MCH 28.8 (25.7-32.2) pg MCHC 33.9 (32.2-35.5) g/dl RDW Std Deviation 42.7 (35.1-43.9) fL Plt Count 221 (163-337) K/mm3 MPV 9.3 L (9.4-12.3) fl Neut % (Auto) 56.9 (34.0-67.9) % Lymph % (Auto) 28.3 (21.8-53.1) % [place] % (Auto) 11.3 (5.3-12.2) % Eos % (Auto) 3.1 (0.8-7.0) Baso % (Auto) 0.2 (0.1-1.2) % Neut # (Auto) 3.34 (1.78-5.38) K/mm3 Lymph # (Auto) 1.66 (1.32-3.57) K/mm3 [place] # (Auto) 0.66 (0.30-0.82) K/mm3 Eos # (Auto) 0.18 (0.04-0.54) K/mm3 Baso # (Auto) 0.01 (0.01-0.08) K/mm3 Sodium 138 (136-145) mEq/L Potassium 3.8 (3.5-5.1) mEq/L Chloride 102 (98-107) mEq/L Carbon Dioxide 26 (21-32) mEq/L Anion Gap 13.8 (5-15) BUN 15 (7-18) mg/dL Creatinine 1.1 (0.7-1.3) mg/dL Est Cr Clr Drug Dosing 63.54 mL/min Estimated GFR (MDRD) > 60 (>60) mL/min BUN/Creatinine Ratio 13.6 L (14-18) Glucose 240 H (74-106) mg/dL Calcium 8.0 L (8.5-10.1) mg/dL Total Bilirubin 0.2 (0.2-1.0) mg/dL AST 39 H (15-37) U/L ALT 41 (16-63) U/L Alkaline Phosphatase 113 (46-116) U/L Troponin I < 0.017 (0.00-0.056) ng/mL Total Protein 6.4 (6.4-8.2) g/dl Albumin 2.9 L (3.4-5.0) g/dl Globulin 3.5 gm/dL Albumin/Globulin Ratio 0.8 L (1-2) Lipase 264 (73-393) U/L Meds: Medications Generic Name Dose Route Start Last Admin Trade Name Freq PRN Reason Stop Dose Admin Sodium Chloride 1,000 mls @ 1,000 mls/hr 05/11/17 04:00 05/11/17 04:02 Normal Saline IV 1,000 mls/hr ASDIRECTED CHECO Administration Discontinued Medications Generic Name Dose Route Start Last Admin Trade Name Freq PRN Reason Stop Dose Admin Al Hydroxide/Mg Hydroxide 30 0 ml 05/11/17 03:50 05/11/17 04:02 ml/ Lidocaine HCl 15 ml PO 05/11/17 03:51 45 ml ONETIME ONE Administration Hydromorphone HCl 0.5 mg 05/11/17 03:50 05/11/17 04:04 Dilaudid IVPUSH 05/11/17 03:51 0.5 mg ONETIME ONE Administration Ondansetron HCl 4 mg 05/11/17 03:50 05/11/17 04:07 Zofran IVPUSH 05/11/17 03:51 4 mg ONETIME ONE Administration - Re-Assessments/Exams Free Text/Narrative Re-Assessment/Exam: 05/11/17 05:30 Patient is feeling much better the GI cocktail made a big difference on his chest pain and stomach pain. I believe he's got his gastritis back again with esophageal reflux. He used to be on some Nexium for this but he is only on the Prilosec [id number]. I also encouraged him to stay away from spicy foods and acid type foods. Also suggested placing a brick underneath the head of his bed so that his bed is slanted while he sleeps rather than being flat which would be most the reflux. He is given a follow-up with his family doctor this week for recheck and I suggested maybe a another upper endoscopy due to the symptoms he is having tonight. Departure - Departure Time of Disposition: 05:32 Disposition: Home, Self-Care 01 Condition: Good Clinical Impression: Upper abdominal pain, Atypical chest pain Gastritis Qualifiers: Gastritis type: unspecified gastritis Chronicity: acute Gastritis bleeding: without bleeding Qualified Code(s): K29.00 - Acute gastritis without bleeding Esophageal reflux Qualifiers: Esophagitis presence: without esophagitis Qualified Code(s): K21.9 - Gastro- esophageal reflux disease without esophagitis Prescriptions: Esomeprazole Magnesium [Nexium] 40 mg PO QAM #30 capsule.dr Referrals: Rona Andrade MD [Primary Care Provider] - Forms: ED Department Discharge Additional Instructions: Start the Nexium 40 mg every morning, you must avoid all spicy and citrus-type foods, I believe your gastritis and your esophageal reflux is what is causing your pain in your stomach and chest, you need to get 2 large bricks and put them underneath the feet at the head of your bed so your bed is at a slant and you can sleep at a slant so the fluid in your stomach will not go into esophagus when you are lying down flat, follow-up with your family doctor regarding these symptoms this week, return to the ER if needed - My Orders Last 24 Hours: My Active Orders 05/11/17 04:00 Sodium Chloride 0.9% [Normal Saline] 1,000 ml IV ASDIRECTED - Assessment/Plan Last 24 Hours: My Active Orders 05/11/17 04:00 Sodium Chloride 0.9% [Normal Saline] 1,000 ml IV ASDIRECTED
== END 2017-05-11 05:45 | disposition home or self-care (01) ==
LOC: JD.ED 03:06
DX: K29.00 Acute gastritis without bleeding (principal); K21.9 Gastro-esophageal reflux disease without esophagitis; E78.00 Pure hypercholesterolemia, unspecified; I10 Essential (primary) hypertension; E11.9 Type 2 diabetes mellitus without complications; E03.9 Hypothyroidism, unspecified; Z90.49 Acquired absence of other specified parts of digestive tract; Z79.82 Long term (current) use of aspirin; Z79.899 Other long term (current) drug therapy
CPT/HCPCS: 36415; 80053; 83690; 84484; 85025; 93005; 96361; 96374; 96375; 99285; A9270; J1170; J2405; J7040; 93010

== ENCOUNTER 2020-09-27 14:38 | Emergency (ER) | payer SELFPAY ==
[2020-09-27 14:49] VITALS: BP 166/86; PULSE 89
[2020-09-27] MEDS ORDERED: Sodium Chloride 0.9% 10 ML Syringe FLUSH PRN (15:01)
[2020-09-27] MEDS ORDERED: Sodium Chloride 0.9% 1,000 ML IV STA (15:10)
[2020-09-27 15:42] LABS: HEMOGLOBIN A1C 13.2 %
--- NOTE | 2020-09-27 15:56 | EDM.PDOC ---
ED HPI GENERAL MEDICAL PROBLEM - General Chief Complaint: Chest Pain Stated Complaint: CHEST PAIN/DIABETIC COMPLAINT/DIZZY Time Seen by Provider: 09/27/20 15:01 Source of Information: Reports: Patient, RN Notes Reviewed History Limitations: Reports: No Limitations - History of Present Illness INITIAL COMMENTS - FREE TEXT/NARRATIVE: Patient is a 59-year-old male presenting to the emergency department with complaints of intermittent left-sided chest pains, dizziness, and tingling throughout his body. He states the symptoms have been happening for a number weeks, however the last 24 hours they have increased in frequency and severity. Patient is an insulin-dependent type 2 diabetic but states he has not had his insulin or blood pressure medications for a number of months. Describes polydipsia and polyuria. He has had intermittent cramps in his lower extremities. Denies any shortness of breath or diaphoresis associated with the chest pain. When the pain is occurring, his chest wall is tender to palpation and is worse with deep breathing. No significant cardiac history. States he was previously prescribed Lantus 40 units daily as well as NovoLog sliding scale with meals. He was on lisinopril for blood pressure. He has had no nausea vomiting or diarrhea. Vital signs in triage were stable. Blood pressure elevated at 166/86, pulse 89, temperature 96.9, respiratory rate 16, oxygen 96% on room air. Left Chest Pain Score (Numeric/FACES): 10 - Related Data Allergies Allergy/AdvReac Type Severity Reaction Status Date / Time No Known Allergies Allergy Verified 09/27/20 14:49 Home Meds: Home Meds Insulin Glargine,Hum.Rec.Anlog [Lantus Solostar] 20 unit SQ BID #1 insuln.pen 09/27/20 [Rx] Past Medical History Cardiovascular History: Reports: High Cholesterol, Hypertension Gastrointestinal History: Reports: GERD Other Genitourinary History: vasectomy Musculoskeletal History: Reports: Back Pain, Chronic, Fracture Psychiatric History: Reports: Addiction Endocrine/Metabolic History: Reports: Diabetes, Type II, Hypothyroidism - Infectious Disease History Infectious Disease History: Reports: Chicken Pox - Past Surgical History GI Surgical History: Reports: Cholecystectomy Male Surgical History: Reports: Vasectomy Social & Family History - Family History Family Medical History: No Pertinent Family History - Tobacco Use Tobacco Use Status *Q: Never Tobacco User - Caffeine Use Caffeine Use: Reports: None - Recreational Drug Use Recreational Drug Use: Yes Recreational Drug Type: Reports: Marijuana/Hashish - Living Situation & Occupation Occupation: Employed ED ROS GENERAL - Review of Systems Review Of Systems: See Below Constitutional: Reports: No Symptoms. Denies: Fever, Chills, Weakness HEENT: Reports: No Symptoms. Denies: Vision Change Respiratory: Reports: No Symptoms. Denies: Shortness of Breath, Cough Cardiovascular: Reports: Chest Pain, Lightheadedness. Denies: Dyspnea on Exertion, Palpitations Endocrine: Reports: High Glucose, Polydypsia, Polyuria GI/Abdominal: Reports: No Symptoms. Denies: Abdominal Pain, Diarrhea, Nausea, Vomiting : Reports: Frequency Musculoskeletal: Reports: No Symptoms Skin: Reports: No Symptoms Neurological: Reports: Dizziness, Tingling. Denies: Headache Psychiatric: Reports: No Symptoms Hematologic/Lymphatic: Reports: No Symptoms Immunologic: Reports: No Symptoms ED EXAM GENERAL NO PERIP PULSE - Physical Exam Exam: See Below Exam Limited By: No Limitations General Appearance: Alert, WD/WN, No Apparent Distress Eye Exam: Bilateral Eye: Normal Inspection, PERRL Respiratory/Chest: No Respiratory Distress, Lungs Clear, Normal Breath Sounds, No Accessory Muscle Use, Chest Non-Tender Cardiovascular: Normal Peripheral Pulses, Regular Rate, Rhythm, No Edema, No Gallop, No JVD, No Murmur, No Rub GI/Abdominal: Normal Bowel Sounds, Soft, Non-Tender, No Organomegaly, No Distention, No Abnormal Bruit, No Mass Extremities: Normal Inspection, Normal Range of Motion, Non-Tender, Normal Capillary Refill, No Pedal Edema Neurological: Alert, Oriented, CN II-XII Intact, Normal Cognition, Normal Gait, Normal Reflexes, No Motor/Sensory Deficits Psychiatric: Normal Affect, Normal Mood #1 Interpretation EKG Date: 09/27/20 Time: 14:52 Rhythm: NSR Rate (Beats/Min): 86 [place]: RAD-Right [place] Deviation P-Wave: Present QRS: Normal ST-T: Normal QT: Normal Course - Vital Signs Last Recorded V/S: Last Vital Signs Temp 96.9 F 09/27/20 14:44 Pulse 89 09/27/20 14:44 Resp 16 09/27/20 14:44 BP 166/86 H 09/27/20 14:44 Pulse Ox 96 09/27/20 14:44 - Orders/Labs/Meds Labs: Laboratory Tests 09/27/20 09/27/20 09/27/20 Range/Units 14:55 14:55 14:55 WBC 6.41 (4.23-9.07) K/mm3 RBC 4.85 (4.63-6.08) M/mm3 Hgb 13.4 L (13.7-17.5) gm/dl Hct 38.4 L (40.1-51.0) % MCV 79.2 D (79.0-92.2) fl MCH 27.6 (25.7-32.2) pg MCHC 34.9 (32.2-35.5) g/dl RDW Std Deviation 40.8 (35.1-43.9) fL Plt Count 272 (163-337) K/mm3 MPV 10.1 (9.4-12.3) fl Neut % (Auto) 64.1 (34.0-67.9) % Lymph % (Auto) 24.0 (21.8-53.1) % [place] % (Auto) 10.5 (5.3-12.2) % Eos % (Auto) 0.6 L (0.8-7.0) Baso % (Auto) 0.3 (0.1-1.2) % Neut # (Auto) 4.11 (1.78-5.38) K/mm3 Lymph # (Auto) 1.54 (1.32-3.57) K/mm3 [place] # (Auto) 0.67 (0.30-0.82) K/mm3 Eos # (Auto) 0.04 (0.04-0.54) K/mm3 Baso # (Auto) 0.02 (0.01-0.08) K/mm3 D-Dimer, Quantitative (0.19-0.50) mg/L Sodium 128 L D (136-145) mEq/L Potassium 4.9 (3.5-5.1) mEq/L Chloride 90 L D (98-107) mEq/L Carbon Dioxide 25 (21-32) mEq/L Anion Gap 17.9 H (5-15) BUN 23 H (7-18) mg/dL Creatinine 1.4 H (0.7-1.3) mg/dL Est Cr Clr Drug Dosing 50.03 mL/min Estimated GFR (MDRD) 52 (>60) mL/min BUN/Creatinine Ratio 16.4 (14-18) Glucose 616 H* (74-106) mg/dL POC Glucose (70-105) mg/dL Hemoglobin A1c ( - 5.6) % Serum Osmolality (280-300) mosm/kg Lactic Acid Calcium 9.0 (8.5-10.1) mg/dL Total Bilirubin 0.5 (0.2-1.0) mg/dL AST TNP ALT 30 (16-63) U/L Alkaline Phosphatase 156 H (46-116) U/L Troponin I < 0.017 (0.00-0.056) ng/mL C-Reactive Protein <0.2 (<1.0) mg/dL Total Protein 7.9 (6.4-8.2) g/dl Albumin 3.3 L (3.4-5.0) g/dl Globulin 4.6 gm/dL Albumin/Globulin Ratio 0.7 L (1-2) Urine Color (Yellow) Urine Appearance (Clear) Urine pH (5.0-8.0) Ur Specific Jeremiah (1.005-1.030) Urine Protein (Negative) Urine Glucose (UA) (Negative) Urine Ketones (Negative) Urine Occult Blood (Negative) Urine Nitrite (Negative) Urine Bilirubin (Negative) Urine Urobilinogen (0.2-1.0) Ur Leukocyte Esterase (Negative) Urine RBC (0-5) /hpf Urine WBC (0-5) /hpf Ur Squamous Epith Cells (0-5) /hpf Urine Bacteria (FEW) /hpf Urine Mucus (FEW) /hpf Urine Osmolality (400-1100) mosm/kg Ketones 1.55 (0.0-0.3) mM 09/27/20 09/27/20 09/27/20 Range/Units 14:55 14:55 14:55 WBC (4.23-9.07) K/mm3 RBC (4.63-6.08) M/mm3 Hgb (13.7-17.5) gm/dl Hct (40.1-51.0) % MCV (79.0-92.2) fl MCH (25.7-32.2) pg MCHC (32.2-35.5) g/dl RDW Std Deviation (35.1-43.9) fL Plt Count (163-337) K/mm3 MPV (9.4-12.3) fl Neut % (Auto) (34.0-67.9) % Lymph % (Auto) (21.8-53.1) % [place] % (Auto) (5.3-12.2) % Eos % (Auto) (0.8-7.0) Baso % (Auto) (0.1-1.2) % Neut # (Auto) (1.78-5.38) K/mm3 Lymph # (Auto) (1.32-3.57) K/mm3 [place] # (Auto) (0.30-0.82) K/mm3 Eos # (Auto) (0.04-0.54) K/mm3 Baso # (Auto) (0.01-0.08) K/mm3 D-Dimer, Quantitative 0.35 (0.19-0.50) mg/L Sodium (136-145) mEq/L Potassium (3.5-5.1) mEq/L Chloride (98-107) mEq/L Carbon Dioxide (21-32) mEq/L Anion Gap (5-15) BUN (7-18) mg/dL Creatinine (0.7-1.3) mg/dL Est Cr Clr Drug Dosing mL/min Estimated GFR (MDRD) (>60) mL/min BUN/Creatinine Ratio (14-18) Glucose (74-106) mg/dL POC Glucose (70-105) mg/dL Hemoglobin A1c 13.2 H ( - 5.6) % Serum Osmolality 315 H (280-300) mosm/kg Lactic Acid Calcium (8.5-10.1) mg/dL Total Bilirubin (0.2-1.0) mg/dL AST ALT (16-63) U/L Alkaline Phosphatase (46-116) U/L Troponin I (0.00-0.056) ng/mL C-Reactive Protein (<1.0) mg/dL Total Protein (6.4-8.2) g/dl Albumin (3.4-5.0) g/dl Globulin gm/dL Albumin/Globulin Ratio (1-2) Urine Color (Yellow) Urine Appearance (Clear) Urine pH (5.0-8.0) Ur Specific Jeremiah (1.005-1.030) Urine Protein (Negative) Urine Glucose (UA) (Negative) Urine Ketones (Negative) Urine Occult Blood (Negative) Urine Nitrite (Negative) Urine Bilirubin (Negative) Urine Urobilinogen (0.2-1.0) Ur Leukocyte Esterase (Negative) Urine RBC (0-5) /hpf Urine WBC (0-5) /hpf Ur Squamous Epith Cells (0-5) /hpf Urine Bacteria (FEW) /hpf Urine Mucus (FEW) /hpf Urine Osmolality (400-1100) mosm/kg Ketones (0.0-0.3) mM 09/27/20 09/27/20 09/27/20 Range/Units 15:25 15:25 15:35 WBC (4.23-9.07) K/mm3 RBC (4.63-6.08) M/mm3 Hgb (13.7-17.5) gm/dl Hct (40.1-51.0) % MCV (79.0-92.2) fl MCH (25.7-32.2) pg MCHC (32.2-35.5) g/dl RDW Std Deviation (35.1-43.9) fL Plt Count (163-337) K/mm3 MPV (9.4-12.3) fl Neut % (Auto) (34.0-67.9) % Lymph % (Auto) (21.8-53.1) % [place] % (Auto) (5.3-12.2) % Eos % (Auto) (0.8-7.0) Baso % (Auto) (0.1-1.2) % Neut # (Auto) (1.78-5.38) K/mm3 Lymph # (Auto) (1.32-3.57) K/mm3 [place] # (Auto) (0.30-0.82) K/mm3 Eos # (Auto) (0.04-0.54) K/mm3 Baso # (Auto) (0.01-0.08) K/mm3 D-Dimer, Quantitative (0.19-0.50) mg/L Sodium (136-145) mEq/L Potassium (3.5-5.1) mEq/L Chloride (98-107) mEq/L Carbon Dioxide (21-32) mEq/L Anion Gap (5-15) BUN (7-18) mg/dL Creatinine (0.7-1.3) mg/dL Est Cr Clr Drug Dosing mL/min Estimated GFR (MDRD) (>60) mL/min BUN/Creatinine Ratio (14-18) Glucose (74-106) mg/dL POC Glucose (70-105) mg/dL Hemoglobin A1c ( - 5.6) % Serum Osmolality (280-300) mosm/kg Lactic Acid TNP Calcium (8.5-10.1) mg/dL Total Bilirubin (0.2-1.0) mg/dL AST ALT (16-63) U/L Alkaline Phosphatase (46-116) U/L Troponin I (0.00-0.056) ng/mL C-Reactive Protein (<1.0) mg/dL Total Protein (6.4-8.2) g/dl Albumin (3.4-5.0) g/dl Globulin gm/dL Albumin/Globulin Ratio (1-2) Urine Color Yellow (Yellow) Urine Appearance Clear (Clear) Urine pH 7.0 (5.0-8.0) Ur Specific Jeremiah 1.015 (1.005-1.030) Urine Protein 2+ H (Negative) Urine Glucose (UA) 2+ H (Negative) Urine Ketones 1+ H (Negative) Urine Occult Blood Negative (Negative) Urine Nitrite Negative (Negative) Urine Bilirubin Negative (Negative) Urine Urobilinogen 0.2 (0.2-1.0) Ur Leukocyte Esterase Negative (Negative) Urine RBC 0-5 (0-5) /hpf Urine WBC 0-5 (0-5) /hpf Ur Squamous Epith Cells 0-5 (0-5) /hpf Urine Bacteria Occasional (FEW) /hpf Urine Mucus Not seen (FEW) /hpf Urine Osmolality 458 (400-1100) mosm/kg Ketones (0.0-0.3) mM 09/27/20 09/27/20 09/27/20 Range/Units 17:00 18:09 19:07 WBC (4.23-9.07) K/mm3 RBC (4.63-6.08) M/mm3 Hgb (13.7-17.5) gm/dl Hct (40.1-51.0) % MCV (79.0-92.2) fl MCH (25.7-32.2) pg MCHC (32.2-35.5) g/dl RDW Std Deviation (35.1-43.9) fL Plt Count (163-337) K/mm3 MPV (9.4-12.3) fl Neut % (Auto) (34.0-67.9) % Lymph % (Auto) (21.8-53.1) % [place] % (Auto) (5.3-12.2) % Eos % (Auto) (0.8-7.0) Baso % (Auto) (0.1-1.2) % Neut # (Auto) (1.78-5.38) K/mm3 Lymph # (Auto) (1.32-3.57) K/mm3 [place] # (Auto) (0.30-0.82) K/mm3 Eos # (Auto) (0.04-0.54) K/mm3 Baso # (Auto) (0.01-0.08) K/mm3 D-Dimer, Quantitative (0.19-0.50) mg/L Sodium (136-145) mEq/L Potassium (3.5-5.1) mEq/L Chloride (98-107) mEq/L Carbon Dioxide (21-32) mEq/L Anion Gap (5-15) BUN (7-18) mg/dL Creatinine (0.7-1.3) mg/dL Est Cr Clr Drug Dosing mL/min Estimated GFR (MDRD) (>60) mL/min BUN/Creatinine Ratio (14-18) Glucose 466 H (74-106) mg/dL POC Glucose 356 H 275 H (70-105) mg/dL Hemoglobin A1c ( - 5.6) % Serum Osmolality (280-300) mosm/kg Lactic Acid Calcium (8.5-10.1) mg/dL Total Bilirubin (0.2-1.0) mg/dL AST ALT (16-63) U/L Alkaline Phosphatase (46-116) U/L Troponin I (0.00-0.056) ng/mL C-Reactive Protein (<1.0) mg/dL Total Protein (6.4-8.2) g/dl Albumin (3.4-5.0) g/dl Globulin gm/dL Albumin/Globulin Ratio (1-2) Urine Color (Yellow) Urine Appearance (Clear) Urine pH (5.0-8.0) Ur Specific Jeremiah (1.005-1.030) Urine Protein (Negative) Urine Glucose (UA) (Negative) Urine Ketones (Negative) Urine Occult Blood (Negative) Urine Nitrite (Negative) Urine Bilirubin (Negative) Urine Urobilinogen (0.2-1.0) Ur Leukocyte Esterase (Negative) Urine RBC (0-5) /hpf Urine WBC (0-5) /hpf Ur Squamous Epith Cells (0-5) /hpf Urine Bacteria (FEW) /hpf Urine Mucus (FEW) /hpf Urine Osmolality (400-1100) mosm/kg Ketones (0.0-0.3) mM /06/07 Range/Units 20:01 WBC (4.23-9.07) K/mm3 RBC (4.63-6.08) M/mm3 Hgb (13.7-17.5) gm/dl Hct (40.1-51.0) % MCV (79.0-92.2) fl MCH (25.7-32.2) pg MCHC (32.2-35.5) g/dl RDW Std Deviation (35.1-43.9) fL Plt Count (163-337) K/mm3 MPV (9.4-12.3) fl Neut % (Auto) (34.0-67.9) % Lymph % (Auto) (21.8-53.1) % [place] % (Auto) (5.3-12.2) % Eos % (Auto) (0.8-7.0) Baso % (Auto) (0.1-1.2) % Neut # (Auto) (1.78-5.38) K/mm3 Lymph # (Auto) (1.32-3.57) K/mm3 [place] # (Auto) (0.30-0.82) K/mm3 Eos # (Auto) (0.04-0.54) K/mm3 Baso # (Auto) (0.01-0.08) K/mm3 D-Dimer, Quantitative (0.19-0.50) mg/L Sodium (136-145) mEq/L Potassium (3.5-5.1) mEq/L Chloride (98-107) mEq/L Carbon Dioxide (21-32) mEq/L Anion Gap (5-15) BUN (7-18) mg/dL Creatinine (0.7-1.3) mg/dL Est Cr Clr Drug Dosing mL/min Estimated GFR (MDRD) (>60) mL/min BUN/Creatinine Ratio (14-18) Glucose (74-106) mg/dL POC Glucose 187 H (70-105) mg/dL Hemoglobin A1c ( - 5.6) % Serum Osmolality (280-300) mosm/kg Lactic Acid Calcium (8.5-10.1) mg/dL Total Bilirubin (0.2-1.0) mg/dL AST ALT (16-63) U/L Alkaline Phosphatase (46-116) U/L Troponin I (0.00-0.056) ng/mL C-Reactive Protein (<1.0) mg/dL Total Protein (6.4-8.2) g/dl Albumin (3.4-5.0) g/dl Globulin gm/dL Albumin/Globulin Ratio (1-2) Urine Color (Yellow) Urine Appearance (Clear) Urine pH (5.0-8.0) Ur Specific Jeremiah (1.005-1.030) Urine Protein (Negative) Urine Glucose (UA) (Negative) Urine Ketones (Negative) Urine Occult Blood (Negative) Urine Nitrite (Negative) Urine Bilirubin (Negative) Urine Urobilinogen (0.2-1.0) Ur Leukocyte Esterase (Negative) Urine RBC (0-5) /hpf Urine WBC (0-5) /hpf Ur Squamous Epith Cells (0-5) /hpf Urine Bacteria (FEW) /hpf Urine Mucus (FEW) /hpf Urine Osmolality (400-1100) mosm/kg Ketones (0.0-0.3) mM Meds: Medications Discontinued Medications Generic Name Dose Route Start Last Admin Trade Name Freq PRN Reason Stop Dose Admin Sodium Chloride 1,000 mls @ 999 mls/hr 09/27/20 15:10 09/27/20 15:15 Normal Saline IV 09/27/20 16:10 999 mls/hr NOW STA Administration Insulin Human Regular 100 unit 100 mls @ 4 mls/hr 09/27/20 15:45 09/27/20 16:04 / Sodium Chloride IV 4 unit/hr TITRATE CHECO 4 mls/hr Administration Protocol 4 UNIT/HR Lactated Ringer's 1,000 mls @ 999 mls/hr 09/27/20 16:26 09/27/20 16:31 Ringers, Lactated IV 09/27/20 17:26 999 mls/hr .BOLUS ONE Administration Lactated Ringer's 1,000 mls @ 500 mls/hr 09/27/20 17:45 09/27/20 17:43 Ringers, Lactated IV 500 mls/hr ASDIRECTED CHECO Administration Sodium Chloride 10 ml 09/27/20 15:01 09/27/20 15:05 Saline Flush FLUSH 10 ml ASDIRECTED PRN Administration Keep Vein Open - Re-Assessments/Exams Free Text/Narrative Re-Assessment/Exam: Patient is a 59-year-old male presenting to the emergency department with complaints of intermittent left-sided chest pain, muscle cramping, and dizziness. He is an insulin-dependent type 2 diabetic who has been off of his insulin for a couple of months. He reports taking Lantus 20 units morning and night as well as sliding scale NovoLog. He does not have a glucometer at home. He reports polyuria and polydipsia. His primary care provider is Dr. Rona Andrade. I have ordered blood work including CBC, CMP, CRP, hemoglobin A1c, ketones, serum osmolality, urinalysis, urine osmolality. We will start a 1 L bolus of normal saline. 09/27/20 1545 Hematology significant for hemoglobin slightly low at 13.4, sodium 128, however when corrected for glucose, it is 140. Chloride low at 90, anion gap 17.9, BUN 23, creatinine 1.4, glucose 616. Hemoglobin A1c, serum osmolality, urinalysis, ketones, and urine osmolality are pending. I have ordered an insulin drip at 4 units/hr and continue bolusing IV fluids. 09/27/20 17:40 Hemoglobin A1c is significantly elevated at 13.2 indicate that this is not an acute episode of hyperglycemia but it has been rather chronic for at least last 3 months. Serum osmolality is minimally elevated at 315. Serum ketones are elevated at 1.55 but not in the area of ketoacidosis. Urine osmolality is normal. Troponin and D-dimer are normal. We will continue IV fluids and insulin drip until blood sugar is around 200. 09/27/20 20:01 Blood glucose is 187. We will discharge the patient home. Also do prescription for Lantus and recommend that he contact [facility] first thing tomorrow morning to set up an appoint with Dr. Andrade as well as diabetic education. He does not have a glucometer at home but states the nursing educator will help him get this. We cannot start his NovoLog sliding scale insulin until he has access to a glucometer. Discharge instructions as documented. Departure - Departure Time of Disposition: 20:01 Disposition: Home, Self-Care 01 Condition: Good Clinical Impression: Insulin dependent diabetes mellitus, Hyperglycemia - Discharge Information *PRESCRIPTION DRUG MONITORING PROGRAM REVIEWED*: No *COPY OF PRESCRIPTION DRUG MONITORING REPORT IN PATIENT YOVANI: No Prescriptions: Insulin Glargine,Hum.Rec.Anlog [Lantus Solostar] 20 unit SQ BID #1 insuln.pen Instructions: Insulin Treatment for Diabetes Mellitus, Diabetes Basics Referrals: Rona Andrade MD [Primary Care Provider] - Forms: ED Department Discharge Additional Instructions: You were seen in the emergency department today for intermittent chest pains, body cramping, tingling, and dizziness without taking your insulin for the last few months. Results of your blood work showed that your blood sugar was significantly elevated at 616 with a hemoglobin A1c of 13.2, indicating that your blood sugar has been unmanaged for an extended period of time. While in the ER, you received IV fluids and insulin which did bring your blood sugar down to a normal range. A prescription for Lantus has been sent to [place] pharmacy. Take this medication as prescribed. Call [facility] first thing tomorrow morning to set up an appointment with Dr. Andrade as well as the nursing educator. If you are not able to get into see Dr. Andrade tomorrow, you should still request to see the nursing educator for assistance obtaining a glucometer as you know need to be checking your blood sugars at home in order to have your NovoLog sliding scale insulin continued. Ensure that you are taking an adequate amount of fluid. Return to ER as needed. Sepsis Event Note (ED) - Evaluation Sepsis Screening Result: No Definite Risk
--- NOTE | 2020-09-27 16:07 | CR ---
Chest: PA and lateral views of the chest were obtained. Comparison: Prior chest x-ray of 02/12/17. Heart size and mediastinum are normal. Lungs are clear with no acute parenchymal change. Small calcification is seen within the right lung base which is stable. Mild scoliosis is noted within the spine with scattered end plate spurring. Impression: 1. Findings as noted above. 2. Nothing acute is seen. Diagnostic code #2
[2020-09-27] MEDS ORDERED: Lactated Ringers 1,000 ML IV ONE (16:26)
[2020-09-27] MEDS ORDERED: Lactated Ringers 1,000 ML IV SCH (17:45)
== END 2020-09-27 20:11 | disposition home or self-care (01) ==
LOC: JD.ED 14:38
DX: E11.65 Type 2 diabetes mellitus with hyperglycemia (principal); I10 Essential (primary) hypertension; Z79.4 Long term (current) use of insulin
CPT/HCPCS: 36415; 71046; 80053; 81001; 82009; 82947; 82962; 83036; 83930; 83935; 84484; 85025; 85379; 86140; 93005; 99285; J1815; J7030; J7120; 93010; 99284

== ENCOUNTER 2021-01-03 10:29 | Emergency (ER) | payer OTHER, BC ==
[2021-01-03 10:50] VITALS: BP 152/92; PULSE 78
[2021-01-03] MEDS ORDERED: HYDROmorphone 1 MG/ML Syringe IM ONE (10:56)
[2021-01-03] MEDS ORDERED: Promethazine 25 MG/ML SDV IM ONE (10:56)
--- NOTE | 2021-01-03 11:01 | EDM.PDOC ---
ED HPI GENERAL MEDICAL PROBLEM - General Chief Complaint: Back Pain or Injury Stated Complaint: BACK PAIN Time Seen by Provider: 01/03/21 10:56 Source of Information: Reports: Patient History Limitations: Reports: No Limitations - History of Present Illness INITIAL COMMENTS - FREE TEXT/NARRATIVE: 60-year-old male presents to the ED complaining of worsening of his chronic low back pain. Patient states he has been doing a lot of heavy work recently and feels that is aggravated his low back pain. Pain is currently radiating down both buttocks and the posterior legs but not below the knees. It is worse slightly on the left side as compared to the right. He has no problems voiding or defecating. He is ambulating slowly. He was able to get off the gurney and stand for examination fairly easily. Patient is a type II diabetic and used to get Kenalog shots in his back but due to the diabetes they have stopped doing this procedure due to his significant elevation of his blood sugars. 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 Onset: Other (Patient has chronic daily back pain which he usually has to stretch out every morning. [place] Duration: Chronic, Constant, Getting Worse, Other (Pain is worse today in his lower back and not improving with [id number] medications.) Location: Reports: Back (Lumbar back pain worse on the left side radiating to both buttocks.) Quality: Reports: Ache ( Does not radiate below the knees.), Throbbing Severity: Moderate (8 out of 10.) Improves with: Reports: Rest Worsens with: Reports: Other (Lifting pushing pulling or carrying make it worse.), Movement Context: Reports: Other (Still trying to work and feels he has been working harder lately aggravating his low back pain). Denies: Activity, Exercise, Lifting, Sick Contact, Trauma Associated Symptoms: Reports: No Other Symptoms. Denies: Confusion, Chest Pain, Cough, cough w sputum, Diaphoresis, Fever/Chills, Headaches, Loss of Appetite, Malaise, Nausea/Vomiting, Rash, Seizure, Shortness of Breath, Syncope, Weakness Treatments COOKEE: Reports: Acetaminophen, NSAIDS (Motrin as needed.) Bilateral Lower Back Pain Score (Numeric/FACES): 10 - Related Data Allergies Allergy/AdvReac Type Severity Reaction Status Date / Time No Known Allergies Allergy Verified 01/03/21 10:50 Home Meds: Home Meds Insulin Aspart [NovoLOG] 0 unit SQ TID 01/03/21 [History] Insulin Glargine,Hum.Rec.Anlog [Lantus Solostar] 34 unit SQ DAILY 01/03/21 [History] Insulin Glargine,Hum.Rec.Anlog [Lantus Solostar] 34 unit SQ DAILY #1 insuln.pen 01/03/21 [Rx] Insulin Regular, Human [Humulin R U-500 Kwikpen] 10 unit SQ QID #1 insuln.pen 01/03/21 [Rx] Meloxicam 15 mg PO DAILY #12 tablet 01/03/21 [Rx] Simvastatin 10 mg PO DAILY 01/03/21 [History] lisinopriL [Lisinopril] 5 mg PO DAILY 01/03/21 [History] oxyCODONE HCl/Acetaminophen [Percocet 5-325 mg Tablet] 1 - 2 each PO Q4H PRN #20 tablet 01/03/21 [Rx] Past Medical History Cardiovascular History: Reports: High Cholesterol, Hypertension Gastrointestinal History: Reports: GERD Other Genitourinary History: vasectomy Musculoskeletal History: Reports: Back Pain, Chronic, Fracture Psychiatric History: Reports: Addiction Endocrine/Metabolic History: Reports: Diabetes, Type II, Hypothyroidism - Infectious Disease History Infectious Disease History: Reports: Chicken Pox - Past Surgical History GI Surgical History: Reports: Cholecystectomy Male Surgical History: Reports: Vasectomy Neurological Surgical History: Reports: Other (See Below) Other Neurological Surgeries/Procedures: Surgery on the brain to remove blood clot. Social & Family History - Family History Family Medical History: No Pertinent Family History - Tobacco Use Tobacco Use Status *Q: Never Tobacco User - Caffeine Use Caffeine Use: Reports: Energy Drinks - Recreational Drug Use Recreational Drug Use: No - Living Situation & Occupation Occupation: Employed ED ROS GENERAL - Review of Systems Review Of Systems: See Below Constitutional: Reports: Malaise, Weakness, Fatigue (From not sleeping well last night.). Denies: Fever, Chills HEENT: Reports: No Symptoms Respiratory: Reports: No Symptoms Cardiovascular: Reports: Blood Pressure Problem, Other (Has hyperlipidemia as well.) Endocrine: Reports: Fatigue GI/Abdominal: Reports: No Symptoms : Reports: Frequency, Other (Nocturia x3.) Musculoskeletal: Reports: Back Pain (. Patient has chronic low back pain due to degenerative arthritic changes.) Skin: Reports: No Symptoms Neurological: Reports: Numbness, Tingling (In his feet a mild peripheral neuropathy due to diabetes.), Difficulty Walking (Due to the back pain). Denies: Confusion, Dizziness, Headache Psychiatric: Reports: No Symptoms Hematologic/Lymphatic: Reports: No Symptoms Immunologic: Reports: No Symptoms ED EXAM,LOWER BACK PAIN/INJURY - Physical Exam Exam: See Below Exam Limited By: No Limitations General Appearance: Alert, WD/WN, No Apparent Distress, Other (Temperature is 35.8 degrees if it is accurate. Heart rate is 78 and sinus respiratory 16 with O2 sats of 95% room air BP is 152/92.) Eye Exam: Bilateral Eye: Normal Inspection (No scleral icterus or blepharal pallor.), PERRL Respiratory/Chest: No Respiratory Distress, Lungs Clear, Normal Breath Sounds, No Accessory Muscle Use Cardiovascular: Normal Peripheral Pulses, Regular Rate, Rhythm, No Edema, No Gallop, No Murmur, No Rub GI/Abdominal: Normal Bowel Sounds, Soft, Non-Tender, No Organomegaly, No Abnormal Bruit, No Mass, Pelvis Stable Back Exam: Muscle Spasm (Paraspinal muscle spasm up to thoracic 8 vertebra bilaterally worse on the left side as compared to the right. Point of maximal tenderness is L3-L4 L4-L5 and L5-S1 facet joints bilaterally.). No: CVA Tenderness (L), CVA Tenderness (R) Extremities: Normal Inspection, Normal Range of Motion, Non-Tender, No Pedal Edema, Other (Does have some arthritic changes in his knees and slight limitation of external rotation of both hips.) Neurological: Alert ( Straight leg raise is negative), Normal Mood/Affect, Normal Dorsiflexion, CN II-XII Intact DTR - Lower Extremities: 0: Ankle (R), Ankle (L), 1+: Knee (R), Knee (L) Psychiatric: Normal Affect, Normal Mood Skin Exam: Warm, Dry, Intact, Normal Color, No Rash Course - Vital Signs Last Recorded V/S: Last Vital Signs Temp 35.8 C L 01/03/21 10:47 Pulse 78 01/03/21 10:47 Resp 16 01/03/21 10:47 BP 152/92 H 01/03/21 10:47 Pulse Ox 95 01/03/21 10:47 - Orders/Labs/Meds Meds: Medications Discontinued Medications Generic Name Dose Route Start Last Admin Trade Name Baylee PRN Reason Stop Dose Admin Hydromorphone HCl 1 mg 01/03/21 10:56 01/03/21 11:10 Hydromorphone 1 Mg/Ml Syringe IM 01/03/21 10:57 1 mg ONETIME ONE Administration Promethazine HCl 25 mg 01/03/21 10:56 01/03/21 11:10 Promethazine 25 Mg/Ml Sdv IM 01/03/21 10:57 25 mg ONETIME ONE Administration - Radiology Interpretation Free Text/Narrative:: 60-year-old male [place] descent presents to the ED with an exacerbation of his chronic low back pain. He has been working outside and working harder with lumbar lifting pushing and pulling in his workplace which is aggravated his back pain. Patient is a type II diabetic not all that well controlled. He is currently out of his regular insulin and is asking for a prescription for this as well. Examination of his back shows paraspinal muscle spasm bilaterally up to thoracic 8. Maximal point of tenderness is over L3-L4 L4-L5 and L5-S1 bilaterally worse on the left as compared to the right. No 6 significant sacroiliac joint pain. Plan I am Dilaudid 1 mg with Phenergan 25 mg IM for muscle relaxant. He will be discharged on Percocet tabs 5/325 mg strength 1 or 2 every 4-6 hours necessary for pain relief. Meloxicam 15 mg once daily for 12 days to reduce pain and inflammation in his back. He has no history of congestive heart failure. I we will will refill his Lantus Solostar insulin pen as well as his NovoLog R insulin pen. Departure - Departure Time of Disposition: 11:10 Disposition: Home, Self-Care 01 Condition: Fair Clinical Impression: Degenerative arthritis of lumbar spine Low back pain Qualifiers: Chronicity: unspecified Back pain laterality: bilateral Sciatica presence: with sciatica Sciatica laterality: bilateral sciatica Qualified Code(s): M54.42 - Lumbago with sciatica, left side - Discharge Information *PRESCRIPTION DRUG MONITORING PROGRAM REVIEWED*: Not Applicable *COPY OF PRESCRIPTION DRUG MONITORING REPORT IN PATIENT YVOANI: Not Applicable Prescriptions: Insulin Regular, Human [Humulin R U-500 Kwikpen] 10 unit SQ QID #1 insuln.pen Insulin Glargine,Hum.Rec.Anlog [Lantus Solostar] 34 unit SQ DAILY #1 insuln.pen Meloxicam 15 mg PO DAILY #12 tablet oxyCODONE HCl/Acetaminophen [Percocet 5-325 mg Tablet] 1 - 2 each PO Q4H PRN #20 tablet PRN Reason: pain relief. Instructions: Chronic Back Pain, [id number] Referrals: Rona Andrade MD [Primary Care Provider] - Forms: ED Department Discharge Additional Instructions: Evaluation in the emergency room today in regards to exacerbation of chronic low back pain. Likely related to recent increased work activities. Examination reveals paraspinal muscle spasm bilaterally but worse on the left side as compared to the right. Maximal facet joint tenderness throughout the lumbar spine worse on the left as compared to the right. Treatment was an IM injection of Dilaudid and Phenergan in the emergency room to relieve pain and muscle spasm. This will likely make you sleepy and I would suggest going home to sleep for the next 4 to 6 hours. Prescription written for anti-inflammatory meloxicam 15 mg to be taken once daily after supper or before bedtime to relieve back pain inflammation. Percocet tabs 5/325 mg strength 1 or 2 tabs every 4-6 hours as needed for pain relief. We cannot operate a motor vehicle or equipment if you were taking the stronger pain medication. I did refill your Lantus Solostar and your NovoLog pen insulin to help control your diabetes. Sepsis Event Note (ED) - Evaluation Sepsis Screening Result: No Definite Risk - Focused Exam Vital Signs: Vital Signs Temp Pulse Resp BP Pulse Ox 01/03/21 10:47 35.8 C L 78 16 152/92 H 95
== END 2021-01-03 11:35 | disposition home or self-care (01) ==
LOC: JD.ED 10:29
DX: M51.16 Intervertebral disc disorders with radiculopathy, lumbar region (principal); E78.00 Pure hypercholesterolemia, unspecified; I10 Essential (primary) hypertension; E11.9 Type 2 diabetes mellitus without complications; Z79.899 Other long term (current) drug therapy; X50.1XXA Overexertion from prolonged static or awkward postures, initial encounter
CPT/HCPCS: 96372; 99283; J1170; J2550; 99284